=== PATIENT | female | born 1975 | race Caucasian/White ===

== ENCOUNTER 2021-11-27 15:00 | Emergency (ER) | payer BC ==
[~2021-11-27] VITALS: Ht 152.4 cm; Wt 77.6 kg
[2021-11-27 15:02] VITALS: BP 97/43
--- NOTE | 2021-11-27 15:11 | NUR ---
pt ambulated to rm 11
--- NOTE | 2021-11-27 15:16 | NUR ---
46 y/o female presents to the emergency dept requesting medical clearance for TB following release from [facility]. Pt states clearence is needed to begin a rehabilitation program. Pt denies fever, night sweats, and cough at this time. pmedhx: shilpi rand
--- NOTE | 2021-11-27 15:19 | NUR ---
xray at the bedside
[2021-11-27 15:55] VITALS: BP 97/43
--- NOTE | 2021-11-27 15:55 | NUR ---
Patient discharged with v/s stable. Written and verbal after care instructions about chest x ray for TB clearence given and explained. Patient verbalized understanding. Ambulatory with steady gait. All questions addressed prior to discharge. Advised to follow up with PMD.
== END 2021-11-27 15:55 | disposition home or self-care (01) ==
LOC: MED 15:00
DX: E11.9 Type 2 diabetes mellitus without complications (principal); I10 Essential (primary) hypertension; Z02.89 Encounter for other administrative examinations
CPT/HCPCS: 71045; 99283